=== PATIENT | male | born 2000 | race Two or more races ===

== ENCOUNTER 2025-09-08 20:50 | Emergency (ER) | payer MEDICAID, SELFPAY ==
[2025-09-08 20:50] VITALS: BMI 33.5
[2025-09-08 21:32] VITALS: BP 150/95; PULSE 95; RESP 18; TEMP 36.6; O2SAT 96
--- NOTE | 2025-09-08 21:47 | XR_ITS ---
EXAMINATION: PA chest single view TECHNIQUE: Upright PA chest single view Date and time: September 08, 2025, 10:24 p.m. INDICATION: Shortness of breath today FINDINGS: Normal heart size Lungs are clear. Osseous structures are intact. IMPRESSION: No active disease
[2025-09-08] MEDS: MethylPREDNISolone SOD SUCC 62.5 MG/ML 2ML VIAL 125 MG IM (22:05)
[2025-09-08 22:09] VITALS: PULSE 77; RESP 18; O2SAT 99
[2025-09-08] MEDS: ALBUTEROL/IPRATROPIUM (Duoneb) RT SOL 3 ML NEBU INH (22:09)
[2025-09-08 23:10] VITALS: PULSE 88; O2SAT 96
--- NOTE | 2025-09-08 23:13 | EDNOTE_ITS ---
ED Asthma RME/HPI General Chief Complaint: Asthma Stated Complaint: ASTHMA ATTACK Time Seen by Provider: 09/08/25 20:53 Arrival date/time: 09/08/25 20:50 This is a case of 25-year-old male with history of asthma came in in the emergency room due to shortness of breath wheezing today history of present illness started 3 days prior to arrival in the emergency room and the patient have cough and nasal congestion worsening of the symptoms not relieved by inhaler thus patient decided to sought consult here in the emergency room Limitations: no limitations Related Data Previous Rx's ?Medication ?Instructions ?Recorded beclomethasone dipropionate 40 1 inh inhalation BID #1 0.6 grams 12/17/23 mcg/actuation HFA breath activated aerosol (Qvar RediHaler) montelukast 10 mg tablet 10 mg PO QDAY #30 tabs 12/17 (Singulair) promethazine-DM 6.25 mg-15 mg/5 mL 5 ml PO Q6H #240 mL 12/17/23 oral syrup albuterol sulfate 2.5 mg/3 mL 2.5 mg (3 mL) inhalation QID PRN 09/08/25 (0.083 %) solution for nebulization shortness of breat h or wheezing #180 mL albuterol sulfate 90 mcg/actuation 2 puff inhalation Q 4H PRN 09/08/25 aerosol inhaler (Ventolin HFA) shortness of breath or wheezing #8.5 grams azithromycin 250 mg tablet 250 mg PO QDAY 6 days #6 ta bs 09/08/25 methylprednisolone 4 mg tablets in 4 mg PO QAM #21 tab s 09/08/25 a dose pack (Medrol (Tru)) nebulizers #1 ea 09/08/25 promethazine-DM 6.25 mg-15 mg/5 mL 5 ml PO Q6H PRN cou gh #118 mL 09/08/25 oral syrup Allergies Allergy/AdvReac Type Severity Reaction Status Date / Time peanut Allergy Intermediate Swelling Verified 12/17/23 08:42 diphenhydramine Allergy Unknown Anaphylaxis Verified 12/17/23 08:42 [place] Modified Starch Allergy Intermediate Swelling Uncoded 12/17/23 08:42 Sesame Seed Allergy Intermediate Swelling Uncoded 12/17/23 08:42 Review of Systems Review of Systems Systems Reviewed: All systems reviewed, normal except as documented Constitutional Constitutional: Reports system reviewed and no additional complaints, except as documented and Reports as per HPI ENT Ears, Nose, Mouth, and Throat: Reports system reviewed and no additional complaints, except as documented and Reports as per HPI Cardiovascular Cardiovascular: Reports system reviewed and no additional complaints, except as documented and Reports as per HPI Respiratory Respiratory: Reports system reviewed and no additional complaints, except as documented and Reports as per HPI Gastrointestinal Gastrointestinal: Reports system reviewed and no additional complaints, except as documented Musculoskeletal Musculoskeletal: Reports system reviewed and no additional complaints, except as documented and Reports as per HPI Neurologic Neurologic: Reports system reviewed and no additional complaints, except as documented and Reports as per HPI Past Medical History Past Medical History CARDIAC: Negative Congestive Heart Failure RESPIRATORY: Negative Chronic Obstructive Pulmonary Disease (COPD) GENITOURINARY: Negative Renal Disease ENDOCRINE: Negative Diabetes Mellitus Type 1 or Diabetes Mellitus Type 2 OTHER HISTORY: Negative Blood Transfusions Social History SMOKING STATUS: Never smoker ED Exam General Limitations: Present no limitations General appearance: Present alert, in no apparent distress and other (Patient is awake alert oriented not in distress nontoxic looking well-hydrated well- nourished) Head Head exam: Present atraumatic, normocephalic and normal inspection Eye Eye exam: Present normal appearance, PERRL and EOMI ENT ENT exam: Present normal exam, normal oropharynx, mucous membranes moist and other (ENT exam is normal and unremarkable) Neck Neck exam: Present normal inspection, full ROM and trachea midline; Absent tenderness, meningismus, lymphadenopathy or thyromegaly Chest Chest inspection: Present normal inspection and symmetric chest wall rise; Absent tenderness Respiratory Respiratory exam: Present normal lung sounds bilaterally and wheezes (Wheezing all over lung field no rhonchi no rales no retraction no stridor); Absent respiratory distress, stridor, accessory muscle use or prolonged expiratory phase Cardiovascular Cardiovascular exam: Present regular rate, normal rhythm and normal heart kiran nds; Absent bradycardia, tachycardia, irregular rhythm, systolic murmur or diastolic murmur Abdominal Exam Abdominal exam: Present soft and normal bowel sounds; Absent distention, tenderness, guarding, rebound, rigidity, diminished bowel sounds, hyperactive bowel sounds, hypoactive bowel sounds or organomegaly Extremities Exam Extremities exam: Present normal inspection and full ROM Back Exam Back exam: Present normal inspection and full ROM Neurological Exam Neurological exam: Present alert, oriented X3, CN II-XII intact, normal gait and reflexes normal; Absent motor sensory deficit Psychiatric Psychiatric exam: Present normal affect and normal mood Skin Skin exam: Present warm, dry, intact and normal color Course Quality Measures none Orders Category Date Time Status XR chest 1V Stat Exams 09/08/25 21:47 Completed Albuterol/Ipratr Rt Megan [Duoneb Rt Megan] Med 09/08/25 21:47 Discontinued 3 ml INH X1 ONE MethylPREDNISolone.* [SoluMEDROL Inj] Med 09/08/25 21:47 Discontinued 125 mg IM X1 ONE Vital Signs Vital signs: Vital Signs Temperature 97.9 F 09/08/25 21:32 Pulse Rate 95 09/08/25 21:32 Respiratory Rate 18 09/08/25 21:32 Blood Pressure 150/95 H 09/08/25 21:32 Pulse Oximetry (%) 96 09/08/25 21:32 Oxygen Delivery Method Room Air 09/08/25 21:32 Oxygen saturation is 96% in room air Asthma MDM Narrative MDM Narrative:: This is a case of 25-year-old male with history of asthma came in in the emergency room due to shortness of breath wheezing today history of present illness started 3 days prior to arrival in the emergency room and the patient have cough and nasal congestion worsening of the symptoms not relieved by inhaler thus patient decided to sought consult here in the emergency room physical examination patient is awake alert oriented not in distress nontoxic looking well-hydrated well-nourished vital signs stable BP stable not hypoxic oxygen saturation is 95 to 96% in room air lung sounds noted wheezing all over lung field no crackles no rales no retraction no stridor no rhonchi heart normal rate regular rhythm no murmur HEENT exam is normal and unremarkable the rest of the physical examination neurological exam is normal and unremarkable based on my physical examination and history patient symptoms suggestive of asthmatic bronchitis patient was given Solu-Medrol IM here in the emergency room and breathing treatment of DuoNeb patient condition markedly improved and resolved patient was reassessed after 1 hour patient lung sounds noted clear no wheezing no rhonchi no crackles no rales no retraction no stridor patient has no shortness of breath or wheezing patient will follow-up with PCP in 2 days for reevaluation and to be referred to hoisting [facility] [employer] [facility] for recurrent asthma exacerbation recurrent persistent worsening symptoms return precaution to the ER is advised Patient was discharged with comfortable condition walking with stable gait. Patient verbalized no further complains explained diagnosis and answered patient question. Patient is comfortable with the proposed management plan including the need to follow up with his/her primary care physician and any specialist if applicable Discussed patient for any urgent condition or worsening sx, He/She needed to go to emergency room immediately or call 911. Patient acknowledge the responsibility to follow up as instructed and to monitor her/his symptoms. For any persistence of the symptoms for more than 3-5 days return precaution advised. Discussed the result of the test and was given printed discharge instruction Patient data External records reviewed:: [facility] previous records Clinical information provided by:: patient Social determinants that could affect healthcare access:: none Patient has the following chronic illnesses:: None How is presenting disease/condition affected by chronic disease/condition?: no chronic disease Evaluation data The following diagnostics were reviewed and interpreted by me:: radiology exam(s) Lab and/or radiology exams considered but not ordered:: Reviewed Interpretation Summary: Reviewed Medications / Prescriptions Medications or Prescriptions considered but not ordered:: Given Medication administrations:: Medication Administration History Discontinued Medications Albuterol/Ipratropium (Albuterol/Ipratropium (Duoneb) Rt Megan 3 Ml Nebu) 3 ml INH X1 ONE Stop: 09/08/25 21:48 Last Admin: 09/08/25 22:09 Dose: 3 ml Documented By: AN Methylprednisolone Sodium Succinate (Methylprednisolone Sod Succ 62.5 Mg/Ml 2ml Vial) 125 mg IM X1 ONE Stop: 09/08/25 21:48 Last Admin: 09/08/25 22:05 Dose: 125 mg Documented By: BD Given Consultations Consultation(s) initiated? (list below): No Diagnosis Differential diagnosis asthma: Acute exacerbation, Acute asthmatic bronchitis and Pneumonia Most likely diagnosis given after review of the tests above:: Asthmatic bronchitis Admission Indicated Admission indicated?: not indicated Explain why admission is indicated or not indicated:: Not indicated Admission Request Was there a request for admission?: No Admission Attestation Admission request attestation: Not indicated Disposition Plan Disposition Plan: Discharge Discharge Attestation Discharge Attestation: The patient and all family members were given an opportunity to ask questions and understood the discharge instructions. Discharge instructions specifically effects, indications for sooner follow up or return to the emergency department, and the expected course of current diagnosis. Patient condition: Stable Discharge Plan Plan Patient Disposition: HOME (Self Care) Patient condition on transfer: Stable Prescriptions/Referrals Prescriptions/Med Rec: New azithromycin 250 mg tablet 250 mg PO QDAY 6 Days Qty: 6 0RF Rx Instructions: start on day 2 of therapy promethazine-DM 6.25-15 mg/5 mL syrup 5 ml PO Q6H PRN (Reason: cough) Qty: 118 0RF albuterol sulfate 2.5 mg /3 mL (0.083 %) solution for nebulization 2.5 mg inhalation QID PRN (Reason: shortness of breath or wheezing) Qty: 180 0RF (DME) nebulizers Misc See Rx Instructions .Route Qty: 1 0RF Rx Instructions: As directed methylprednisolone [Medrol (Tru)] 4 mg tablets,dose pack 4 mg PO QAM Qty: 21 0RF Rx Instructions: start tomorrow albuterol sulfate [Ventolin HFA] 90 mcg/actuation HFA aerosol inhaler 2 puff inhalation Q4H PRN (Reason: shortness of breath or wheezing) Qty: 8.5 0RF No Action montelukast [Singulair] 10 mg tablet 10 mg PO QDAY Qty: 30 0RF promethazine-DM 6.25-15 mg/5 mL syrup 5 ml PO Q6H Qty: 240 0RF Qvar RediHaler 40 mcg/actuation HFA aerosol breath activated 1 inh inhalation BID Qty: 10.6 0RF Referrals: Christi Hurt PA-C [Primary Care Provider] - In 1 week Problem List Clinical Impression: AB (asthmatic bronchitis) Patient/Caregiver Discharge Instructions Education Materials: Acute Bronchitis, Asthma Additional Instructions: Follow-up with your primary care physician in 2 days for reevaluation and 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 Guanaco Olguin
== END 2025-09-08 23:16 | disposition home or self-care (01) ==
PROVIDERS: Emergency Provider Emergency Medicine; PCP Physician Assistant
DX: J45.909 Unspecified asthma, uncomplicated (principal)
CPT/HCPCS: 71045; 94640; 96372; 99283; A9270; J2919